=== PATIENT | female | born 1970 | race Caucasian/White ===

== ENCOUNTER 2017-12-14 10:32 | Outpatient (CLI) | payer OTHER ==
[~2017-12-14 10:32] MED LIST: CYMBALTA30 MG; HYZAAR 50-12.1 UDTAB; SEPTRA DS TABLE1 TAB PO; SYNTHROID75 MCG; ULTRACET PO
== END 2017-12-14 12:10 | disposition home or self-care (01) ==
LOC: MRI 10:32
DX: M19.011 Primary osteoarthritis, right shoulder (principal); M75.121 Complete rotator cuff tear or rupture of right shoulder, not specified as traumatic; M19.012 Primary osteoarthritis, left shoulder
CPT/HCPCS: 73221

== ENCOUNTER 2019-06-05 06:34 | Inpatient (IN) | payer OTHER ==
[~2019-06-05] VITALS: Ht 175.3 cm; Wt 117.9 kg
[2019-06-05] MEDS ORDERED: VASOTEC2.5 MG PO (06:48)
[2019-06-15] MEDS ORDERED: FLOVENT DISKU250 MCG IH (11:01)
[2019-06-15] MEDS ORDERED: MEDROLPACK PO (11:01)
== END 2019-06-15 13:17 | disposition home or self-care (01) | DRG 202 ==
LOC: ER 06:34 → SEC-K 17:58 → SURH 17:58 → MEDJ 06-06 01:39 → SEC-K 06-06 01:54 → SURH 06-06 22:24
PROVIDERS: ADMIT Internal Medicine
PROC: BB24ZZZ Computerized Tomography (CT Scan) of Bilateral Lungs (ICD-10-PCS; principal; 2019-06-05)
PROC: 3E0F7GC Introduction of Other Therapeutic Substance into Respiratory Tract, Via Natural or Artificial Opening (ICD-10-PCS; 2019-06-05)
PROC: 4A033R1 Measurement of Arterial Saturation, Peripheral, Percutaneous Approach (ICD-10-PCS; 2019-06-05)
PROC: 8E0ZXY6 Isolation (ICD-10-PCS; 2019-06-05)
DX: J20.9 Acute bronchitis, unspecified (principal); J45.41 Moderate persistent asthma with (acute) exacerbation; N39.0 Urinary tract infection, site not specified; B96.0 Mycoplasma pneumoniae [M. pneumoniae] as the cause of diseases classified elsewhere; E66.01 Morbid (severe) obesity due to excess calories; R31.29 Other microscopic hematuria; R16.2 Hepatomegaly with splenomegaly, not elsewhere classified; M79.7 Fibromyalgia; I10 Essential (primary) hypertension; D69.59 Other secondary thrombocytopenia